=== PATIENT | male | born 1945 | race Asian ===

== ENCOUNTER 2018-01-17 22:14 | Emergency (ER) | payer OTHER, MEDICARE ==
[2018-01-17 22:21] VITALS: BP 139/90; PULSE 72; TEMP 97.7; BMI 23.5
--- NOTE | 2018-01-17 23:16 | PDOC ---
History of Present Illness - General Chief Complaint: Pain Stated Complaint: HEMMORHOIDS Time Seen by Provider: 01/17/18 22:47 History Source: Patient Exam Limitations: No Limitations - History of Present Illness Initial Comments: 01/17/18 23:09 This 72-year-old male who presents emergency Department with urinary retention and rectal pain status post hemorrhoidectomy on 01/12. Patient states she had urinary retention after surgery and had a Callahan placed by his primary doctor on 01/12. Remove the Callahan catheter yesterday and voided without difficulty this morning but has not voided since 9 AM today. Patient states that approximately 4 :00 he was having perirectal pain and saw an zone maintenance technician who help relieve some of his pain to a level of 2/10. The patient got home he had a large bowel movement which caused him to have severe pain to the left perirectal region. He currently rates his pain 8/10. Past History - Past Medical History Allergies/Adverse Reactions: Allergies Allergy/AdvReac Type Severity Reaction Status Date / Time pollen extracts Allergy Mild Verified 01/17/18 22:37 Home Medications: Ambulatory Orders Cephalexin [Keflex] 500 mg PO TID 01/17/18 Naloxegol Oxalate [Movantik] 25 mg PO DAILY 01/17/18 Oxycodone HCl/Acetaminophen [Percocet 5-325 mg Tablet] 5 - 325 tab TID 01/17/18 Polyethylene Glycol 3350 [Miralax (For Daily Use) -] 17 gm PO DAILY 01/17/18 Tramadol HCl 50 mg PO TID 01/17/18 Zolpidem Tartrate [Zolpidem Tartrate ER] 12.5 mg PO DAILY 01/17/18 COPD: No GI Disorders: Yes (fecal impaction) - Suicide/Smoking/Psychosocial Hx Smoking History: Never smoked Information on smoking cessation initiated: No Hx Alcohol Use: No Drug/Substance Use Hx: No Review of Systems - Review of Systems Able to Perform ROS?: Yes Is the patient limited Sami proficient: No Constitutional: No: Symptoms Reported HEENTM: No: Symptoms Reported Respiratory: No: Symptoms reported Cardiac (ROS): No: Symptoms Reported ABD/GI: Yes: See HPI : Yes: See HPI Musculoskeletal: No: Symptoms Reported Integumentary: No: Symptoms Reported Neurological: No: Symptoms reported Endocrine: No: Symptoms Reported Hematologic/Lymphatic: No: Symptoms Reported *Physical Exam - Vital Signs Last Vital Signs Temp Pulse Resp BP Pulse Ox 97.7 F 72 20 139/90 97 01/17/18 22:18 01/17/18 22:18 01/17/18 22:18 01/17/18 22:18 01/17/18 22:18 - Physical Exam General Appearance: Yes: Appropriately Dressed. No: Apparent Distress Respiratory/Chest: positive: Lungs Clear, Normal Breath Sounds. negative: Respiratory Distress, Accessory Muscle Use Cardiovascular: positive: Regular Rhythm, Regular Rate. negative: Murmur Gastrointestinal/Abdominal: positive: Normal Bowel Sounds, Soft, Other ( palpable bladder noted). negative: Tender Rectal Exam: positive: hemorrhoids (external left sided) Musculoskeletal: positive: Normal Inspection. negative: CVA Tenderness Extremity: positive: Normal Inspection Integumentary: positive: Normal Color, Dry, Warm Neurologic: positive: Alert, Normal Response Medical Decision Making - Medical Decision Making 01/17/18 23:13 A/P: 72-year-old male with urinary retention and perirectal pain status post hemorrhoidectomy on 01/12 Palpable bladder noted Nonthrombosed hemorrhoid noted to the left side of anus Rectal exam reveals small amount of hard stool in vault. No palpable abscess. Hemorrhoidectomy site not erythematous. No drainage present. Ecchymosis present to right perirectal area. Pain management, Callahan, reassess 01/18/18 01:00 UA is unremarkable without signs of infection. 01/18/18 01:35 Patient's pain is currently 2/10. Patient expressed concern that his pain will not be relieved once the morphine wears off. Patient has prescription for Percocet status post hemorrhoidectomy which she has not filled. I'll give the patient 2 Percocet now prior to discharge until he can get his prescription filled in the morning. Patient agrees with this plan and states he will follow up with the surgeon within the next 48 hours. *DC/Admit/Observation/Transfer Diagnosis at time of Disposition: External hemorrhoids, Postoperative urinary retention - Discharge Dispostion Disposition: HOME Condition at time of disposition: Stable Decision to Admit order: No - Referrals Referrals: Grayson Bella MD, MD [Primary Care Provider] - Grayson Cabrera MD [Staff Physician] - - Patient Instructions Additional Instructions: Keep Callahan in place until he follow-up with the urologist yet been provided. Continue all previous prescribed medications. Make an appointment to be reevaluated by your surgeon. Make an appointment for reevaluation by her primary doctor within the next 7 days. - Post Discharge Activity
--- NOTE | 2018-01-17 23:30 | PDOC ---
*Physical Exam - Vital Signs Last Vital Signs Temp Pulse Resp BP Pulse Ox 97.7 F 72 20 139/90 97 01/17/18 22:18 01/17/18 22:18 01/17/18 22:18 01/17/18 22:18 01/17/18 22:18 Medical Decision Making - Medical Decision Making 01/17/18 23:29 agree with care from CLAUDIA Upton *DC/Admit/Observation/Transfer Diagnosis at time of Disposition: External hemorrhoids, Postoperative urinary retention - Discharge Dispostion Disposition: HOME Condition at time of disposition: Stable - Referrals Referrals: Grayson Bella MD, MD [Primary Care Provider] - Grayson Cabrera MD [Staff Physician] - - Patient Instructions Additional Instructions: Keep Callahan in place until he follow-up with the urologist yet been provided. Continue all previous prescribed medications. Make an appointment to be reevaluated by your surgeon. Make an appointment for reevaluation by her primary doctor within the next 7 days. - Post Discharge Activity
[2018-01-17] MEDS ORDERED: morphine CARPU-JECT 2 MG/1 ML DISP.SYRIN IM ONE (23:54)
[2018-01-18 00:08] LABS: URINE APPEARANCE CLEAR; URINE BILIRUBIN NEGATIVE (<2.0 mg/dL); URINE COLOR YELLOW; URINE GLUCOSE (UA) NEGATIVE (NEGATIVE); URINE KETONE TRACE (NEGATIVE); URINE LEUK ESTERASE NEGATIVE (NEGATIVE); URINE NITRITE NEGATIVE (NEGATIVE); URINE PROTEIN NEGATIVE (NEGATIVE); URINE UROBILINOGEN NEGATIVE mg/dL (0.2-1.0)
[2018-01-18] MEDS ORDERED: morphine SULFATE 4 MG/ML VIAL ONE (00:34)
== END 2018-01-18 02:05 | disposition home or self-care (01) ==
LOC: JER 22:14
PROC: 3E023NZ Introduction of Analgesics, Hypnotics, Sedatives into Muscle, Percutaneous Approach (ICD-10-PCS; principal; 2018-01-17)
PROC: 0T9B70Z Drainage of Bladder with Drainage Device, Via Natural or Artificial Opening (ICD-10-PCS; 2018-01-17)
DX: N99.89 Other postprocedural complications and disorders of genitourinary system (principal); R33.8 Other retention of urine; K64.4 Residual hemorrhoidal skin tags
CPT/HCPCS: 81003; 87086; 99282-25